=== PATIENT | male | born 1965 | race Two or more races ===

== ENCOUNTER 2018-01-26 08:04 | Outpatient (CLI) | payer OTHER | END 2018-01-26 08:42 | disposition home or self-care (01) | LOC: SONOGRAMA 08:04 → MAMO-SONO 08:45 | DX: N18.3 Chronic kidney disease, stage 3 (moderate) (principal); E10.21 Type 1 diabetes mellitus with diabetic nephropathy; N28.9 Disorder of kidney and ureter, unspecified; Z79.4 Long term (current) use of insulin; I13.10 Hypertensive heart and chronic kidney disease without heart failure, with stage 1 through stage 4 chronic kidney disease, or unspecified chronic kidney disease; E11.43 Type 2 diabetes mellitus with diabetic autonomic (poly)neuropathy; G62.9 Polyneuropathy, unspecified; E79.0 Hyperuricemia without signs of inflammatory arthritis and tophaceous disease; E56.9 Vitamin deficiency, unspecified; E11.3599 Type 2 diabetes mellitus with proliferative diabetic retinopathy without macular edema, unspecified eye ==